=== PATIENT | female | born 1945 | race Caucasian/White ===

== ENCOUNTER → 2021-10-09 | Outpatient (CLI) | payer OTHER | LOC: ORTHO 09:42 | PROVIDERS: ATTEND Orthopaedic Surgery | DX: S92.352A Displaced fracture of fifth metatarsal bone, left foot, initial encounter for closed fracture (principal); I10 Essential (primary) hypertension; E03.9 Hypothyroidism, unspecified | CPT/HCPCS: 99203 ==

== ENCOUNTER → 2021-11-08 | Outpatient (CLI) | payer OTHER ==
--- NOTE | 2021-11-08 11:36 | Diagnostic Imaging Report ---
INDICATION: Follow-up fracture. COMPARISON: 10/07/2021 FINDINGS: Multiple radiographic views of the left foot were obtained. Transverse oriented fracture of the proximal margins of the 5th metatarsal is identified. There is no bridging callus formation or other evidence of significant interval healing. Fracture fragments remain in appropriate alignment. No new acute osseous abnormality is seen. Joint spaces are maintained. No unexpected radiopaque foreign bodies are identified. IMPRESSION: 1. Stable 5th metatarsal fracture as above. Dictated by: Dictated on workstation # [id number]
== END ==
LOC: ORTHO 10:50
PROVIDERS: ATTEND Orthopaedic Surgery
DX: Z47.89 Encounter for other orthopedic aftercare (principal); S92.352D Displaced fracture of fifth metatarsal bone, left foot, subsequent encounter for fracture with routine healing; I10 Essential (primary) hypertension; E03.9 Hypothyroidism, unspecified; J45.909 Unspecified asthma, uncomplicated; X58.XXXD Exposure to other specified factors, subsequent encounter
CPT/HCPCS: 73630; G0463; 99213

== ENCOUNTER → 2021-11-29 | Outpatient (CLI) | payer OTHER ==
--- NOTE | 2021-11-29 11:52 | Diagnostic Imaging Report ---
INDICATION: Foot pain. Comparison is made with prior examination of 11/08/2021. FINDINGS: The alignment is grossly normal. There are mild degenerative changes. The previously described 5th metatarsal fracture demonstrates normal alignment. There is no other acute fracture or dislocation. The soft tissues are unremarkable. IMPRESSION: Stable alignment of the 5th metatarsal fracture. Dictated by: Dictated on workstation # [id number]
== END ==
LOC: ORTHO 10:01
PROVIDERS: ATTEND Orthopaedic Surgery
DX: Z47.89 Encounter for other orthopedic aftercare (principal); S92.352D Displaced fracture of fifth metatarsal bone, left foot, subsequent encounter for fracture with routine healing; X58.XXXD Exposure to other specified factors, subsequent encounter
CPT/HCPCS: 73630; G0463; 99213

== ENCOUNTER → 2021-12-27 | Outpatient (CLI) | payer OTHER ==
--- NOTE | 2021-12-27 17:07 | Diagnostic Imaging Report ---
INDICATION: Left foot pain, 5th metatarsal fracture AP, oblique, and lateral views of the left foot are obtained and compared with 11/29/2021 There is further healing of the 5th metatarsal fracture compared to the prior study with fracture line now barely visible. Underlying degenerative findings are noted. There is no new bony abnormality. IMPRESSION: Further healing of 5th metatarsal base fracture with stable alignment. Dictated by: Dictated on workstation # [id number]
== END ==
LOC: ORTHO 10:32
PROVIDERS: ATTEND Orthopaedic Surgery
DX: Z47.89 Encounter for other orthopedic aftercare (principal); S92.352D Displaced fracture of fifth metatarsal bone, left foot, subsequent encounter for fracture with routine healing; X58.XXXD Exposure to other specified factors, subsequent encounter
CPT/HCPCS: 73630; G0463; 99213